=== PATIENT | female | born 1960 | race Caucasian/White ===

== ENCOUNTER 2016-11-30 06:14 | Day surgery (SDC) | payer OTHER ==
[2016-11-29 11:04] VITALS: BMI 34.4
[~2016-11-30] VITALS: Ht 162.6 cm; Wt 94.0 kg
[2016-11-30] VITALS (11 sets, daily range): BP systolic 102–127; BP diastolic 57–70; PULSE 72–87; RESP 12–20; Ht 162.6 cm; Wt 94.0 kg
[2016-11-30] MEDS ORDERED: CYCLOPENTOLATE/PHENYLEPH 2 ML OPH OPER SCH (07:30)
[2016-11-30] MEDS ORDERED: CIPROFLOXACIN 0.3% 2.5 ML OPH OPER SCH (07:30)
[2016-11-30] MEDS ORDERED: DICLOFENAC 0.1% 2.5 ML OPH OPER SCH (07:30)
[2016-11-30] MEDS ORDERED: TROPICAMIDE 1% 2 ML OPH OPER SCH (07:30)
--- NOTE | 2016-11-30 07:58 | HP ---
DATE OF ADMISSION: 11/30/2016 HISTORY OF PRESENT ILLNESS: This 56-year-old patient is admitted for cataract surgery of the left e ye. The patient has had decreased vision in both eyes over a number of years. The patient has a hi story of chronic open angle glaucoma as well as proliferative diabetic retinopathy and diabetic macu lar edema. The patient has received treatment for diabetic retinopathy in the past. The patient cu rrently is admitted for elective cataract surgery of the left eye. This left eye is a highly nearsi ghted eye and has a history of amblyopia with less than normal vision as compared to the contralater al eye from an early age. 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 MEDICATIONS: Include 1. Insulin. 2. Pravastatin. 3. Iron sulfate. 4. In addition the patient is on brimonidine for control of intraocular pressure. ALLERGIES: NO KNOWN ALLERGIES. PHYSICAL EXAMINATION: EYES: Visual acuity best corrected is hand motion vision in the right eye and 20/400 in the left ey e. Slit lamp examination reveals anterior cortical and nuclear sclerotic cataracts present in both eyes. Applanation tonometry is 19 mmHg. Examination of the retina reveals pallor of the optic disc in the right eye and bilateral panretinal photocoagulation scars present. No active diabetic disea se is seen. DIAGNOSIS: Cataract, left eye. PLAN: Cataract extraction with lens implant, left eye. The risks and alternatives of the surgery h ave been discussed as well as the inability to prognosticate visual outcome due to the chronic histo ry of the open angle glaucoma and the diabetic retinopathy combined with the history of amblyopia in the left eye due to high myopia. The patient understands this and is willing to undergo the surger y in order to attain any improvement of visual acuity. Dictated By: VIRI ANTUNEZ/AMAURY Conf#: [id number] DID#: [id number]
[2016-11-30] MEDS ORDERED: FER325 PO (08:17)
[2016-11-30] MEDS ORDERED: CHLO25TA13 PO (08:17)
[2016-11-30] MEDS ORDERED: LEVO50TA74 PO (08:18)
[2016-11-30] MEDS ORDERED: ENAL20TA PO (08:18)
[2016-11-30] MEDS ORDERED: INSU100C SQ (08:19)
[2016-11-30] MEDS ORDERED: ASPI81TA3 PO (08:19)
[2016-11-30] MEDS ORDERED: LANT3I SC (08:20)
[2016-11-30] MEDS ORDERED: PRAV80TA27 PO (08:21)
--- NOTE | 2016-11-30 08:55 | RADRPT ---
PROCEDURE: XR Chest. CLINICAL INDICATION: Preoperative TECHNIQUE: Single frontal view of the chest was obtained COMPARISON: None FINDINGS: The heart and mediastinum are within normal limits. The lungs are clear. There is no pleural effusion or pneumothorax. RPTAT: AA IMPRESSION: No acute disease. .Ubaldo Orozco MD, Date Time Electronically viewed and signed by .Ubaldo Orozco MD, on 11/30/2016 08:55 .S/
[2016-11-30] MEDS ORDERED: HYALURONATE/CHONDROITIN 1ML OPH INJ IO ONE (09:20)
[2016-11-30] MEDS ORDERED: CEFAZOLIN 1 GM INJ INJ ONE (09:20)
[2016-11-30] MEDS ORDERED: CARBACHOL 0.01% 1.5 ML OPH INJ LEFT EYE ONE (09:20)
[2016-11-30] MEDS ORDERED: DEXAMETHASONE 4 MG/ML 1 ML INJ INJ ONE (09:20)
[2016-11-30] MEDS ORDERED: MIDAZOLAM 1 MG/ML 2 ML INJ ONE (09:33)
[2016-11-30] MEDS ORDERED: FENTAnyl 50 MCG/ML VIAL ONE (09:33)
[2016-11-30] MEDS ORDERED: PROPOFOL 20 ML ONE (09:34)
[2016-11-30] MEDS ORDERED: LIDOCAINE 2% (SDV) 5 ML INJ ONE (09:34)
[2016-11-30] MEDS ORDERED: LIDOCAINE 4% (MPF) 5 ML INJ ONE (10:06)
[2016-11-30] MEDS ORDERED: GENTAMICIN 80 MG INJ ONE (10:06)
[2016-11-30] MEDS ORDERED: DEXAMETHASONE 4 MG/ML 1 ML INJ ONE (10:06)
[2016-11-30] MEDS ORDERED: CEFAZOLIN 1 GM INJ ONE (10:06)
[2016-11-30] MEDS ORDERED: CARBACHOL 0.01% 1.5 ML OPH INJ ONE (10:06)
[2016-11-30] MEDS ORDERED: HYALURONATE/CHONDROITIN 1ML OPH INJ ONE (10:07)
[2016-11-30] MEDS ORDERED: EPINEPHrine 1 MG INJ ONE (10:07)
[2016-11-30] MEDS ORDERED: OXYCODONE/ACETAMINOPHEN (5/325) TAB PO PRN (10:30)
[2016-11-30] MEDS ORDERED: DIPHENHYDRAMINE 50 MG INJ IV PRN (10:30)
[2016-11-30] MEDS ORDERED: ONDANSETRON 4 MG INJ IV PRN (10:30)
[2016-11-30] MEDS ORDERED: HYDROmorphONE (0.2 MG/ML) 10ML SYG IV PRN (10:30)
[2016-11-30] MEDS ORDERED: FENTAnyl 50 MCG/ML VIAL IV PRN (10:30)
[2016-11-30] MEDS ORDERED: PROCHLORPERAZINE 10 MG INJ IV PRN (10:30)
--- NOTE | 2016-11-30 10:53 | OPR ---
DATE OF OPERATION: 11/30/2016 PREOPERATIVE DIAGNOSIS: Cataract, left eye. POSTOPERATIVE DIAGNOSIS: Cataract, left eye. OPERATION PERFORMED: Cataract extraction with lens implant, left eye. SURGEON: Viri Cuevas MD. ANESTHESIA: Dr. Oh. PROCEDURE: The patient was brought to the operating room and placed on the table with an IV in plac e and the patient attached to an laboratory monitor. Oxygen was given via face mask. After some intravenous sedation was administered, local anesthesia was given using Xylocaine 2% with epinephrine, mixed with Marcaine 0.5%. This was given in a lid block and retrobulbar injection. The patient was then prepped and draped in the usual sterile manner. A wire lid speculum was inserted between the lids of the left eye. It was noted that the pupil was relatively small at approximately 4 mm despite multiple applications of tropicamide and cyclomydril eye drops. It was therefore decided to try to use I-ring to enlarge the pupil. After the 2 parace ntesis incisions were made in the superotemporal and superonasal quadrant, a 3.0 keratome was used to enter the anterior chamber through the 12 o'clock clear cornea as a stepped incision adjacent to the limbus. Through this opening, the anterior chamber was filled with DisCoVisc and then the I-rin g was inserted anterior to the iris. Attempts to place the I-ring in the pupil space and enlarge it were unsuccessful and therefore it was decided to remove the device. Once this was removed, two ad ditional paracentesis incisions were made near the limbus through clear cornea in the inferotemporal and inferonasal quadrants. Through these 4 paracentesis incisions silicone iris hooks were inserte d to retract the pupil. After this was done, a Superblade was used to enter the anterior chamber at the corneoscleral limbus at the 10:30 o'clock position. A separate incision was made using a 3.0-mm keratome which entered the corneoscleral junction at the 12 o'clock position. Through this 3-mm ope boone, an irrigating cystitome was introduced into the anterior chamber. The chamber was filled with Viscoat and an anterior capsulotomy was performed. Balanced salt solution was then used for hydrodis section of the lens. A phacoemulsification handpiece was then brought into the field and introduced into the anterior chamber. The lens nucleus was emulsified using a deep groove and cracking the nuc leus into quadrants. Following this, each quadrant was aspirated and emulsified at the pupillary mar gin. After this was completed, the irrigation/aspiration handpiece was brought to the field, introduced i nto the posterior chamber, and the lens cortical material was removed. When this was completed, johnathan tional Viscoat was injected into the anterior and posterior chambers. The 3-mm opening had its internal lips enlarged, and then the posterior chamber intraocular lens daniel suring 7.5 diopters ([employer] and [employer] model #[id number]) was then injected into the posterior chamber using the lens injector system. Following insertion of the intraocular lens, the 4 iris vladimir ks were removed. After the leading haptic was introduced into the capsular bag and the lens optic w as present in the center of the eye, the injector was removed and the trailing haptic was grasped wi th non-toothed forceps and introduced into the capsular fold superiorly. A Sinskey hook was then use d to rotate the intraocular lens so that the lips were oriented in the horizontal meridian. One 10-0 nylon suture was placed across the wound. Prior to tying, the irrigation/aspiration handpiece was reintroduced into the anterior chamber to re move the Viscoat. Miochol was instilled to constrict the pupil, and then the 10-0 nylon suture was t ied. The ends were cut short and then the knot was buried. Then, 0.5 mL of dexamethasone and 0.5 mL of Ancef were injected into the sub-Tenon space in the infe rior fornix. Ciloxan drops were then placed on the surface of the eye. The speculum was removed and a patch was applied. The patient then left the operating room in satisfactory condition. Dictated By: VIRI ANTUNEZ/AMAURY Conf#: [id number] DID#: [id number]
== END 2016-11-30 11:22 | disposition home or self-care (01) ==
LOC: SDS 06:14
PROVIDERS: ATTEND Ophthalmology
DX: H25.12 Age-related nuclear cataract, left eye (principal); E11.9 Type 2 diabetes mellitus without complications; E78.5 Hyperlipidemia, unspecified; E03.9 Hypothyroidism, unspecified; I12.9 Hypertensive chronic kidney disease with stage 1 through stage 4 chronic kidney disease, or unspecified chronic kidney disease; N18.9 Chronic kidney disease, unspecified
CPT/HCPCS: 66984; 71010; 82962; J0171; J0690; J1100; J1580; J2250; J3010; V2632; Z7512; Z7610

== ENCOUNTER → 2017-09-20 | Outpatient (CLI) | END | disposition home or self-care (01) ==